=== PATIENT | male | born 1945 | race Caucasian/White ===

== ENCOUNTER → 2019-10-29 | Outpatient (CLI) | payer OTHER ==
[~2019-10-29] VITALS: Ht 162.6 cm; Wt 72.6 kg
[2019-10-29] VITALS (8 sets, daily range): BP systolic 113–138; BP diastolic 46–61
[~2019-10-29] MED LIST: AMBIEN 10 MG TA10 MG PO; FLONASE 0.05%50 MCG NASAL; FOSAMAX 70 MG T70 MG PO; HYDROCHLOROTHIA25 M2 PO; MELOXICAM15 MG PO; OXYBUTYNIN 5 MG5 M2 PO
== END | disposition home or self-care (01) ==
LOC: CATH 09:13
DX: M54.9 Dorsalgia, unspecified (principal); M80.08XA Age-related osteoporosis with current pathological fracture, vertebra(e), initial encounter for fracture; I10 Essential (primary) hypertension; E78.00 Pure hypercholesterolemia, unspecified; E66.09 Other obesity due to excess calories; Z98.890 Other specified postprocedural states; Z79.899 Other long term (current) drug therapy; Z88.8 Allergy status to other drugs, medicaments and biological substances

== ENCOUNTER → 2019-11-15 | Outpatient (CLI) | payer OTHER | LOC: SJCVC 09:58 | DX: M80.08XG Age-related osteoporosis with current pathological fracture, vertebra(e), subsequent encounter for fracture with delayed healing (principal); I73.9 Peripheral vascular disease, unspecified; I10 Essential (primary) hypertension; Z79.899 Other long term (current) drug therapy ==